=== PATIENT | female | born 1995 | race African-American/Black ===

== ENCOUNTER 2024-02-13 09:51 | Emergency (ER) | payer OTHER ==
[2024-02-13] MEDS ORDERED: NA CHLORIDE 0.9% 1,000 ML ONE (10:17)
[2024-02-13 10:33] LABS: Absolute Eosinophils 0.1 K/uL (0-0.5); Absolute Lymphocytes (CBC) 2.7 K/uL (0.7-4.9); Absolute Monocytes 0.5 K/uL (0.1-1.3); Absolute Neutrophil 3.5 K/uL (1.8-8.0); Basophils % 0.4 % (0-1.3); Eosinophils % 0.9 % (0-4.4); Hemoglobin 12.4 g/dL (12.0-15.0); Lymphocytes % 39.5 % (15.3-44.8); MCH 29.3 pg (27.0-35.0); MCHC 33.5 g/dL (32.0-36.0); MCV 87.5 fL (80-100); MPV 7.5 fL (7.6-11.3); Monocytes % 7.9 % (3.3-12.3); Neutrophils % 51.3 % (41.7-73.7); Nucleated Red Blood Cells % 0.1 % (0-0); Platelets 298 thou/uL (152-406); RBC Red Blood Cell Count 4.23 M/uL (3.86-4.86); Red Cell Distribution Width 15.4 % (12.1-15.2)
[2024-02-13 10:49] LABS: Anion Gap 4.9 mEq/L (5.0-15.0); BUN Blood Urea Nitrogen 9 mg/dL (7-18); Bicarbonate 29 mEq/L (21-32); Glomerular Filtration Rate 99 ml/min (=/>90); Glucose Level 96 mg/dL (74-106); Potassium 3.9 mEq/L (3.5-5.1); Sodium Level 137 mEq/L (136-145)
[2024-02-13 11:01] LABS: HCG, Quantitative < 1 mIU/mL (1-3)
[2024-02-13 11:15] LABS: Specific Gravity 1.022 (1.005-1.030); Sqamous Epithelial <5 /HPF (None Seen); Urine Bacteria <20 /HPF (<20); Urine Bilirubin NEGATIVE (Negative); Urine Blood Negative (Negative); Urine Clarity Clear (Clear); Urine Color Light-Yellow (Yellow); Urine Culture Reflex Order NOT NEEDED; Urine Glucose NEGATIVE (Negative); Urine Ketones NEGATIVE (Negative); Urine Microscopic Reflex YN ORDER UMIC; Urine Nitrite NEGATIVE (Negative); Urine Protein NEGATIVE (Negative); Urine RBC <5 /HPF (None Seen); Urine Urobilinogen Normal (Normal); Urine WBC <5 /HPF (<5)
--- NOTE | 2024-02-13 11:39 | RAD REPORT ---
EXAM DESCRIPTION: US - Transvaginal Study Probe - 02/13/2024 10:32 am CLINICAL HISTORY: PAIN COMPARISON: No comparisons TECHNIQUE: Sonographic grayscale and color flow images of the pelvis were obtained. FINDINGS: The uterus is normal in size, shape and echotexture. The uterus measures 8.0 cm in length. The endometrial stripe measures 10 mm, normal. Both ovaries are normal in size, shape and echotexture. The right ovary measures 3.1 x 2.4 x 2.5 cm. The left ovary measures 3.0 x 2.2 x 2.7 cm. No ovarian or parovarian lesions. No adnexal masses. Normal Doppler blood flow was demonstrated to both ovaries. No evidence of torsion. No significant pelvic ascites. IMPRESSION: Unremarkable pelvic ultrasound exam.
--- NOTE | 2024-02-13 12:10 | EDPHYS ---
Physician Documentation [facility] Name: Sadaf Duque Age: 29 yrs Sex: Female : 1995 Arrival Date: 02/13/2024 Time: 09:51 Bed 13 Private MD: ED Physician Ruben Islas HPI: 02/12 11:59 This 29 yrs old Black Female presents to ER via Ambulatory with complaints of owen Dizziness, Vaginal Bleeding, Syncope, Abdominal Cramping. 11:59 The patient presents with dizziness. Onset: The symptoms/episode began/occurred 3 owen day(s) ago. Context: occurred at an unknown location. Modifying factors: The symptoms are alleviated by nothing, the symptoms are aggravated by nothing. Associated signs and symptoms: Pertinent positives: abdominal pain. Severity of symptoms: At their worst the symptoms were moderate in the emergency department the symptoms are unchanged despite home interventions. Patient's baseline: Neuro: alert and fully oriented. The patient has experienced similar episodes in the past, several times. Historical: - Allergies: 10:11 No Known Allergies; hb - Home Meds: 10:11 None [Active]; hb - PMHx: 10:11 Hypertension; Gestational Diabetes; hb - PSHx: 10:11 None; hb - Immunization history:: Adult Immunizations up to date. - Infectious Disease History:: Denies. - Social history:: Smoking status: Patient denies any tobacco usage or history of. - Family history:: not pertinent. ROS: 11:59 Constitutional: Negative for fever, chills, and weight loss, Eyes: Negative for injury, owen pain, redness, and discharge, ENT: Negative for injury, pain, and discharge, Neck: Negative for injury, pain, and swelling, Cardiovascular: Negative for chest pain, palpitations, and edema, Respiratory: Negative for shortness of breath, cough, wheezing, and pleuritic chest pain, Abdomen/GI: Negative for abdominal pain, nausea, vomiting, diarrhea, and constipation, Back: Negative for injury and pain, MS/Extremity: Negative for injury and deformity, Skin: Negative for injury, rash, and discoloration, Neuro: Negative for headache, weakness, numbness, tingling, and seizure, Psych: Negative for depression, anxiety, suicide ideation, homicidal ideation, and hallucinations, Allergy/Immunology: Negative for hives, rash, and allergies, Endocrine: Negative for neck swelling, polydipsia, polyuria, polyphagia, and marked weight changes, Hematologic/Lymphatic: Negative for swollen nodes, abnormal bleeding, and unusual bruising, 11:59 : Positive for pelvic pain, Exam: 11:59 Constitutional: This is a well developed, well nourished patient who is awake, alert, owen and in no acute distress. Head/Face: Normocephalic, atraumatic. Eyes: Pupils equal round and reactive to light, extra-ocular motions intact. Lids and lashes normal. Conjunctiva and sclera are non-icteric and not injected. Cornea within normal limits. Periorbital areas with no swelling, redness, or edema. ENT: Nares patent. No nasal discharge, no septal abnormalities noted. Tympanic membranes are normal and external auditory canals are clear. Oropharynx with no redness, swelling, or masses, exudates, or evidence of obstruction, uvula midline. Mucous membranes moist. Neck: Trachea midline, no thyromegaly or masses palpated, and no cervical lymphadenopathy. Supple, full range of motion without nuchal rigidity, or vertebral point tenderness. No Meningismus. Chest/axilla: Normal chest wall appearance and motion. Nontender with no deformity. No lesions are appreciated. Cardiovascular: Regular rate and rhythm with a normal S1 and S2. No gallops, murmurs, or rubs. Normal PMI, no JVD. No pulse deficits. Respiratory: Lungs have equal breath sounds bilaterally, clear to auscultation and percussion. No rales, rhonchi or wheezes noted. No increased work of breathing, no retractions or nasal flaring. Abdomen/GI: Soft, non-tender, with normal bowel sounds. No distension or tympany. No guarding or rebound. No evidence of tenderness throughout. Back: No spinal tenderness. No costovertebral tenderness. Full range of motion. Skin: Warm, dry with normal turgor. Normal color with no rashes, no lesions, and no evidence of cellulitis. MS/ Extremity: Pulses equal, no cyanosis. Neurovascular intact. Full, normal range of motion. Neuro: Awake and alert, GCS 15, oriented to person, place, time, and situation. Cranial nerves II-XII grossly intact. Motor strength 5/5 in all extremities. Sensory grossly intact. Cerebellar exam normal. Normal gait. Psych: Awake, alert, with orientation to person, place and time. Behavior, mood, and affect are within normal limits. Vital Signs: 10:08 BP 125 / 86; Pulse 68; Resp 16; Temp 98.9(O); Pulse Ox 100% on R/A; Weight 86.18 kg; hb Height 5 ft. 5 in. ; Pain 7/10; 11:00 BP 120 / 86; Pulse 65; Resp 18 S; Pulse Ox 100% on R/A; aa5 10:08 Body Mass Index 31.62 (86.18 kg, 165.1 cm) hb 10:08 Pain Scale: Adult hb MDM: 10:02 Patient medically screened. [facility] 12:07 Differential diagnosis: generalized weakness, GI bleed, , syncope. Data [facility] reviewed: vital signs, nurses notes, lab test result(s), radiologic studies, ultrasound. Consideration of Admission/Observation Escalation of care including admission/observation considered. I considered the following discharge prescriptions or medication management in the emergency department Medications were administered in the Emergency Department. See MAR. Test considered but Not performed: CT: no ct abd pelvis. 02/12 10:03 Order name: Abo/rh Typing; Complete Time: 11:08 [facility] 02/12 10:03 Order name: CBC with Diff; Complete Time: 11:08 [facility] 02/12 10:03 Order name: Test, Urine; Complete Time: 11:42 [facility] 02/12 10:03 Order name: Urinalysis w/ reflexes; Complete Time: 11:42 [facility] 02/12 10:09 Order name: Quantitative Hcg; Complete Time: 11:08 [facility] 02/12 10:28 Order name: Basic Metabolic Panel; Complete Time: 11:08 [facility] 02/12 11:08 Order name: ABO/RH no charge; Complete Time: 11:08 [facility] 02/12 10:03 Order name: US Transvaginal Study (Probe); Complete Time: 11:42 [facility] 02/12 10:03 Order name: IV Saline Lock; Complete Time: 10:20 [facility] 02/12 10:03 Order name: Labs collected and sent; Complete Time: 10:20 [facility] 02/12 10:03 Order name: NPO; Complete Time: 10:20 [facility] 02/12 10:36 Order name: Labs - recollect needed: recollect ABO/RH wrong gender on labels; Complete eb Time: 10:42 Administered Medications: 10:42 Drug: NS 0.9% IV 1000 ml IV at 1 bolus Per protocol; 1000 mL bolus Route: IV; Rate: 1 aa5 bolus; Site: right antecubital; 12:00 Follow up: IV Status: Completed infusion; IV Intake: 1000ml aa5 Disposition Summary: 02/13/24 12:10 Discharge Ordered Notes: Location: Home owen Problem: new owen Symptoms: have improved owen Condition: Stable owen Diagnosis - Pelvic and perineal pain owen - Abnormal uterine and vaginal bleeding, unspecified owen - UTI/ Urinary tract infection, site not specified owen Followup: owen - With: Private Physician - When: 2 - 3 days - Reason: Recheck today's complaints, Continuance of care, Re-evaluation by your physician Discharge Instructions: - Discharge Summary Sheet owen - Abnormal Uterine Bleeding owen - Pelvic Pain, Female owen - Urinary Tract Infection, Adult owen - Pelvic Pain, Female, [id number] owen - Urinary Tract Infection, Adult, [id number] [facility] Forms: - Medication Reconciliation Form [facility] - Antibiotic Education owen - Prescription Opioid Use owen - Patient Portal Instructions [facility] - Leadership Thank You Letter [facility] Prescriptions: - Cipro 250 mg Oral tablet - take 1 tablet ORAL route every 12 hours; 14 tablet; Refills: 0, Product [facility] Selection Permitted - Ibuprofen 600 mg Oral tablet - take 1 tablet ORAL route every 6 hours As needed take with food; 20 tablet; [facility] Refills: 0, Product Selection Permitted Signatures: Dispatcher [employer] Ruben Bernal MD MD cha Calderon, Audri, RN RN aa5 Margarita Duke RN RN Stacy Caraballo Corrections: (The following items were deleted from the chart) 10:10 10:10 QUANTITATIVE HCG+C.LAB.BRZ ordered. EDMS EDMS 10:30 10:04 BASIC METABOLIC PANEL+C.LAB.BRZ ordered. EDMS EDMS
--- NOTE | 2024-02-13 12:10 | ER ---
Nurse's Notes [facility] Name: Sadaf Duque Age: 29 yrs Sex: Female : 1995 Arrival Date: 02/13/2024 Time: 09:51 Bed 13 Private MD: Diagnosis: Pelvic and perineal pain;Abnormal uterine and vaginal bleeding, unspecified;UTI/ Urinary tract infection, site not specified Presentation: 02/12 10:08 Chief complaint: Spotty vaginal bleeding 2 weeks ago, left lower abdominal pain and hb "not feeling right" today. Coronavirus screen: At this time, the client does not indicate any symptoms associated with coronavirus-19. Ebola Screen: No symptoms or risks identified at this time. Initial Sepsis Screen: Does the patient meet any 2 criteria? No. Patient's initial sepsis screen is negative. Does the patient have a suspected source of infection? No. Patient's initial sepsis screen is negative. Risk Assessment: Do you want to hurt yourself or someone else? Patient reports no desire to harm self or others. Onset of symptoms was February 13, 2024. 10:08 Method Of Arrival: Ambulatory hb 10:08 Acuity: DEREK 3 hb Triage Assessment: 10:11 General: Appears in no apparent distress. Behavior is calm, cooperative. Pain: Pain hb currently is 7 out of 10 on a pain scale. Neuro: Level of Consciousness is awake, alert, obeys commands, Oriented to person, place, time, situation. Cardiovascular: Patient's skin is warm and dry. Respiratory: Respiratory effort is even, unlabored, Respiratory pattern is regular, symmetrical. : Reports left lower abdominal pain and spotty vaginal bleeding. Historical: - Allergies: 10:11 No Known Allergies; hb - Home Meds: 10:11 None [Active]; hb - PMHx: 10:11 Hypertension; Gestational Diabetes; hb - PSHx: 10:11 None; hb - Immunization history:: Adult Immunizations up to date. - Infectious Disease History:: Denies. - Social history:: Smoking status: Patient denies any tobacco usage or history of. - Family history:: not pertinent. Screenin:15 [facility] ED Fall Risk Assessment (Adult) History of falling in the last 3 months, aa5 including since admission No falls in past 3 months (0 pts) Confusion or Disorientation No (0 pts) Intoxicated or Sedated No (0 pts) Impaired Gait No (0 pts) Mobility Assist Device Used No (0 pt) Altered Elimination No (0 pt) Score/Fall Risk Level 0 - 2 = Low Risk Oriented to surroundings, Maintained a safe environment, Educated pt \\T\\ family on fall prevention, incl call for assistance when getting out of bed. Abuse screen: Denies threats or abuse. Nutritional screening: No deficits noted. Tuberculosis screening: No symptoms or risk factors identified. Assessment: 10:15 General: Appears comfortable, Behavior is calm, cooperative. Pain: Complains of pain in aa5 left lower quadrant Pain currently is 0 out of 10 on a pain scale. Quality of pain is described as crampy, Is intermittent. Neuro: Level of Consciousness is awake, alert, obeys commands, Oriented to person, place, time, situation. Cardiovascular: Heart tones S1 S2 present Rhythm is regular. Respiratory: Airway is patent Respiratory effort is even, unlabored, Respiratory pattern is regular, symmetrical. GI: Abdomen is round non-distended, Bowel sounds present X 4 quads. Abd is soft and non tender X 4 quads. : Reports vaginal bleeding that is spotty. EENT: No signs and/or symptoms were reported regarding the EENT system. Derm: Skin is dry, Skin is normal, Skin temperature is warm. Musculoskeletal: Range of motion: intact in all extremities. 10:42 Neuro: Level of Consciousness is awake, alert, obeys commands, Oriented to person, aa5 place, time, situation. Respiratory: Airway is patent Respiratory effort is even, unlabored, Respiratory pattern is regular, symmetrical. Derm: Skin is dry, Skin is normal, Skin temperature is warm. 10:42 Reassessment: Pt back from US. aa5 12:35 Neuro: Level of Consciousness is awake, alert, obeys commands, Oriented to person, aa5 place, time, situation. Respiratory: Airway is patent Respiratory effort is even, unlabored, Respiratory pattern is regular, symmetrical. Derm: Skin is dry, Skin is normal, Skin temperature is warm. Vital Signs: 10:08 BP 125 / 86; Pulse 68; Resp 16; Temp 98.9(O); Pulse Ox 100% on R/A; Weight 86.18 kg; hb Height 5 ft. 5 in. ; Pain 7/10; 11:00 BP 120 / 86; Pulse 65; Resp 18 S; Pulse Ox 100% on R/A; aa5 10:08 Body Mass Index 31.62 (86.18 kg, 165.1 cm) hb 10:08 Pain Scale: Adult hb ED Course: 10:00 Patient arrived in ED. mg5 10:02 Ruben Islas MD is Attending Physician. [facility] 10:11 Triage completed. hb 10:11 Arm band placed on. hb 10:15 Dana Stewart, RN is Primary Nurse. aa5 10:15 Patient has correct armband on for positive identification. Bed in low position. Call aa5 light in reach. Side rails up X 1. Client placed on continuous cardiac and pulse oximetry monitoring. NIBP monitoring applied. 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 Pulse ox on. NIBP on. 10:24 Quantitative Hcg Sent. bc6 10:24 Abo/rh Typing Sent. bc6 10:24 CBC with Diff Sent. bc6 10:24 Initial lab(s) drawn, by tx, sent to lab. Inserted saline lock: 20 gauge in right 6 antecubital area, using aseptic technique. Blood collected. 10:28 Transvaginal Study (Probe) In Process Unspecified. EDND 12:35 No provider procedures requiring assistance completed. IV discontinued, intact, aa5 bleeding controlled, No redness/swelling at site. Pressure dressing applied. Administered Medications: 10:42 Drug: NS 0.9% IV 1000 ml IV at 1 bolus Per protocol; 1000 mL bolus Route: IV; Rate: 1 aa5 bolus; Site: right antecubital; 12:00 Follow up: IV Status: Completed infusion; IV Intake: 1000ml aa5 Medication: 11:22 VIS not applicable for this client. aa5 Intake: 12:00 IV: 1000ml; Total: 1000ml. aa5 Outcome: 12:10 Discharge ordered by . [facility] 12:35 Discharged to home ambulatory, aa5 12:35 Condition: good 12:35 Discharge instructions given to patient, Instructed on discharge instructions, follow up and referral plans. medication usage, Demonstrated understanding of instructions, follow-up care, medications, Prescriptions given X 2, 12:37 Patient left the ED. aa5 Signatures: Dispatcher [employer] EDND Ruben Islas MD MD cha Calderon, Audri, RN RN aa5 Margarita Duke RN RN Quita Kerr bc6 Alison Majano mg5 Corrections: (The following items were deleted from the chart) 10:30 10:24 BASIC METABOLIC PANEL+C.LAB.BRZ drawn and sent. 6 EDMS
[2024-02-13 12:46] VITALS: BP 125/86; TEMP 98.9; O2SAT 100
== END 2024-02-13 12:37 | disposition home or self-care (01) ==
LOC: EDSEX 09:51 → ER 09:51
DX: N39.0 Urinary tract infection, site not specified (principal); N93.9 Abnormal uterine and vaginal bleeding, unspecified; I10 Essential (primary) hypertension
CPT/HCPCS: 85025; 81001; 80048; 36415; 86900; 81025; 86901; 84702; 76830; 96360; 99285; J7030

== ENCOUNTER 2024-04-02 12:09 | Emergency (ER) | payer OTHER ==
[2024-04-02 13:05] LABS: Absolute Eosinophils 0.1 K/uL (0-0.5); Absolute Lymphocytes (CBC) 2.6 K/uL (0.7-4.9); Absolute Monocytes 0.5 K/uL (0.1-1.3); Absolute Neutrophil 5.1 K/uL (1.8-8.0); Basophils % 0.4 % (0-1.3); Eosinophils % 1.3 % (0-4.4); Hematocrit 39.8 % (36.0-45.0); Hemoglobin 12.9 g/dL (12.0-15.0); Lymphocytes % 31.2 % (15.3-44.8); MCH 28.3 pg (27.0-35.0); MCHC 32.4 g/dL (32.0-36.0); MCV 87.3 fL (80-100); MPV 7.6 fL (7.6-11.3); Monocytes % 5.9 % (3.3-12.3); Neutrophils % 61.2 % (41.7-73.7); Nucleated Red Blood Cells % 0.2 % (0-0); Platelets 303 thou/uL (152-406); RBC Red Blood Cell Count 4.56 M/uL (3.86-4.86)
[2024-04-02 13:21] LABS: Anion Gap 6.7 mEq/L (5.0-15.0); BUN Blood Urea Nitrogen 7 mg/dL (7-18); Bicarbonate 30 mEq/L (21-32); Glomerular Filtration Rate 110 ml/min (=/>90); Glucose Level 95 mg/dL (74-106); Potassium 3.7 mEq/L (3.5-5.1); Sodium Level 139 mEq/L (136-145)
[2024-04-02 13:22] LABS: HCG, Quantitative < 1 mIU/mL (1-3)
--- NOTE | 2024-04-02 14:15 | RAD REPORT ---
EXAM DESCRIPTION: US - Transvaginal Study Probe - 04/02/2024 1:23 pm CLINICAL HISTORY: Pelvic pain and vaginal bleeding COMPARISON: February 2024 FINDINGS: The uterus measures 8 x 4 x 5 cm. A fibroid is not seen. The endometrial stripe measures 3 millimeters The ovaries are normal in size and echotexture. The right and left adnexa unremarkable No significant free fluid is seen. IMPRESSION: Unremarkable pelvic ultrasound
[2024-04-02 14:36] LABS: Specific Gravity > 1.030 (1.005-1.030); Urine Bacteria None Seen /HPF (<20); Urine Bilirubin NEGATIVE (Negative); Urine Blood 3+ (OVER) (Negative); Urine Clarity Extremely Turbid (Clear); Urine Color Yellow (Yellow); Urine Culture Reflex Order NOT NEEDED; Urine Glucose NEGATIVE (Negative); Urine Ketones NEGATIVE (Negative); Urine Microscopic Reflex YN ORDER UMIC; Urine Mucus 3+ /HPF (None Seen); Urine Nitrite NEGATIVE (Negative); Urine Protein 1+ (Negative); Urine RBC >50 /HPF (None Seen); Urine Urobilinogen Normal (Normal); Urine WBC <5 /HPF (<5); Urine pH 7.5 (5.0-7.0)
--- NOTE | 2024-04-02 14:44 | ER ---
Nurse's Notes [facility] Name: Sadaf Duque Age: 29 yrs Sex: Female : 1995 Arrival Date: 04/02/2024 Time: 12:09 Bed 11 Private MD: Diagnosis: Vaginal bleeding Presentation: 04/02 12:19 Chief complaint: Patient states: positive test yesterday. Pt reports vaginal aa5 spotting yesterday that has gotten worse today. Coronavirus screen: At this time, the client does not indicate any symptoms associated with coronavirus-19. Ebola Screen: Patient denies travel to an Ebola-affected area in the 21 days before illness onset. Initial Sepsis Screen: Does the patient meet any 2 criteria? No. Patient's initial sepsis screen is negative. Does the patient have a suspected source of infection? No. Patient's initial sepsis screen is negative. Risk Assessment: Do you want to hurt yourself or someone else? Patient reports no desire to harm self or others. Onset of symptoms was March 2024. 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 - Infectious Disease History:: Denies. - Social history:: Smoking status: Patient denies any tobacco usage or history of. - Family history:: not pertinent. Screenin:37 [facility] ED Fall Risk Assessment (Adult) History of falling in the last 3 months, tl4 including since admission No falls in past 3 months (0 pts) Confusion or Disorientation No (0 pts) Intoxicated or Sedated No (0 pts) Impaired Gait No (0 pts) Mobility Assist Device Used No (0 pt) Altered Elimination No (0 pt) Score/Fall Risk Level 0 - 2 = Low Risk Oriented to surroundings, Maintained a safe environment, Educated pt \T\ family on fall prevention, incl call for assistance when getting out of bed, Assessed \T\ reinforced patient's understanding of fall precautions. Abuse screen: Denies threats or abuse. Denies injuries from another. Nutritional screening: No deficits noted. Tuberculosis screening: No symptoms or risk factors identified. Assessment: 12:36 Obstetrical Assessment: General assessment: awake and alert, skin warm and dry, tl4 respirations even and unlabored. General: Appears in no apparent distress. Behavior is calm, cooperative. Pain: Denies pain. Neuro: Level of Consciousness is awake, alert, obeys commands, Oriented to person, place, time, situation, Moves all extremities. Full function Gait is steady, Speech is normal. Cardiovascular: Capillary refill < 3 seconds Patient's skin is warm and dry. Respiratory: Airway is patent Respiratory effort is even, unlabored, Respiratory pattern is regular, symmetrical, Breath sounds are clear Breath sounds are coarse. GI: No signs and/or symptoms were reported involving the gastrointestinal system. : Reports vaginal bleeding that is light flow. EENT: No signs and/or symptoms were reported regarding the EENT system. Derm: No signs and/or symptoms reported regarding the dermatologic system. Musculoskeletal: No signs and/or symptoms reported regarding the musculoskeletal system. 14:24 Reassessment: Patient and/or family updated on plan of care and expected duration. Pain tl4 level reassessed. Patient is alert, oriented x 3, equal unlabored respirations, skin warm/dry/pink. Pt denies any needs at this time. Pt updated on status of evaluation. Family at bedside. Will continue to monitor. Vital Signs: 12:19 BP 128 / 80; Pulse 75; Resp 16 S; Temp 97.8(TE); Pulse Ox 99% on R/A; Weight 90.72 kg aa5 (R); Height 5 ft. 5 in. (R); 14:25 BP 121 / 77; Pulse 70; Resp 18; Pulse Ox 99% on R/A; Pain 0/10; tl4 15:01 BP 116 / 70; Pulse 68; Resp 16; Temp 98(O); Pulse Ox 99% on R/A; Pain 0/10; tl4 12:19 Body Mass Index 33.28 (90.72 kg, 165.1 cm) aa5 14:25 Pain Scale: Adult tl4 15:01 Pain Scale: Adult tl4 Vitals: 15:01 Heart Tones pt is not . tl4 ED Course: 12:13 Patient arrived in ED. ra3 12:14 Timothy Crawford MD is Attending Physician. rt 12:19 Arm band placed on. aa5 12:20 Triage completed. aa5 12:34 Giovanni Kingsley RN is Primary Nurse. tl4 12:37 Patient has correct armband on for positive identification. Placed in gown. Bed in low tl4 position. Call light in reach. Side rails up X 1. Provided Education on: ed process, call saenz. Client placed on continuous cardiac and pulse oximetry monitoring. NIBP monitoring applied. Door closed. Noise minimized. Moved to private room. Warm blanket given. Pillow given. 12:38 No provider procedures requiring assistance completed. tl4 12:59 Basic Metabolic Panel Sent. tl4 12:59 CBC with Diff Sent. tl4 12:59 Quantitative Hcg Sent. tl4 12:59 Initial lab(s) drawn, by me, sent to lab. Inserted saline lock: 22 gauge in right tl4 antecubital area, using aseptic technique. Blood collected. 13:00 Basic Metabolic Panel Sent. tl4 13:00 CBC with Diff Sent. tl4 13:00 Quantitative Hcg Sent. tl4 13:25 Transvaginal Study Probe In Process Unspecified. EDMS 14:24 Urinalysis w/ reflexes Sent. tl4 14:44 Don Bean DO is Referral Physician. rt 15:00 IV discontinued, intact, bleeding controlled, No redness/swelling at site. Pressure tl4 dressing applied. Administered Medications: No medications were administered Medication: 12:37 VIS not applicable for this client. tl4 Point of Care Testing: Urine : 15:01 hCG Reading: Negative; tl4 Outcome: 14:44 Discharge ordered by . rt 15:01 Discharged to home ambulatory, with family, tl4 15:01 Condition: stable 15:01 Discharge instructions given to patient, Instructed on discharge instructions, follow up and referral plans. Demonstrated understanding of instructions, follow-up care, 15:02 Patient left the ED. tl4 Signatures: Dispatcher [employer] EDNV Dana Stewart RN RN aa5 Timothy Crawford MD MD rt Giovanni Kingsley RN RN tl4 Ladi Bender 3
--- NOTE | 2024-04-02 14:44 | EDPHYS ---
Physician Documentation [facility] Name: Sadaf Duque Age: 29 yrs Sex: Female : 1995 Arrival Date: 04/02/2024 Time: 12:09 Bed 11 Private MD: ED Physician Timothy Crawford HPI: 04/02 14:02 This 29 yrs old Black Female presents to ER via Ambulatory with complaints of Vaginal rt Bleeding, + Preg <12wks. 14:02 Patient is reportedly G5, P2 at about 4 weeks gestation per her report who presents to rt the ED with reported vaginal bleeding, right-sided pelvic pain. The patient reports having a positive test yesterday. She reports 2 prior history of ectopic pregnancies. Reports spotting currently. Nausea, denies other acute complaints, symptoms are moderate in severity, no other aggravating or alleviating factors.. 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 - Infectious Disease History:: Denies. - Social history:: Smoking status: Patient denies any tobacco usage or history of. - Family history:: not pertinent. ROS: 14:02 Constitutional: Negative for fever, chills, and weight loss, Cardiovascular: Negative rt for chest pain, palpitations, and edema, Respiratory: Negative for shortness of breath, cough, wheezing, and pleuritic chest pain, Skin: Negative for injury, rash, and discoloration, Neuro: Negative for headache, weakness, numbness, tingling, and seizure, 14:02 Abdomen/GI: Positive for nausea, 14:02 : Positive for vaginal bleeding, Exam: 14:02 Constitutional: This is a well developed, well nourished patient who is awake, alert, rt and in no acute distress. Head/Face: Normocephalic, atraumatic. Chest/axilla: Normal chest wall appearance and motion. Nontender with no deformity. No lesions are appreciated. Cardiovascular: Regular rate and rhythm with a normal S1 and S2. No gallops, murmurs, or rubs. Normal PMI, no JVD. No pulse deficits. Respiratory: Lungs have equal breath sounds bilaterally, clear to auscultation and percussion. No rales, rhonchi or wheezes noted. No increased work of breathing, no retractions or nasal flaring. Abdomen/GI: Soft, non-tender, with normal bowel sounds. No distension or tympany. No guarding or rebound. No evidence of tenderness throughout. Skin: Warm, dry with normal turgor. Normal color with no rashes, no lesions, and no evidence of cellulitis. MS/ Extremity: Pulses equal, no cyanosis. Neurovascular intact. Full, normal range of motion. Neuro: Awake and alert, GCS 15, oriented to person, place, time, and situation. Cranial nerves II-XII grossly intact. Motor strength 5/5 in all extremities. Sensory grossly intact. Cerebellar exam normal. Normal gait. Vital Signs: 12:19 BP 128 / 80; Pulse 75; Resp 16 S; Temp 97.8(TE); Pulse Ox 99% on R/A; Weight 90.72 kg aa5 (R); Height 5 ft. 5 in. (R); 14:25 BP 121 / 77; Pulse 70; Resp 18; Pulse Ox 99% on R/A; Pain 0/10; tl4 15:01 BP 116 / 70; Pulse 68; Resp 16; Temp 98(O); Pulse Ox 99% on R/A; Pain 0/10; tl4 12:19 Body Mass Index 33.28 (90.72 kg, 165.1 cm) aa5 14:25 Pain Scale: Adult tl4 15:01 Pain Scale: Adult tl4 MDM: 12:23 Patient medically screened. rt 14:58 Differential diagnosis: Menstruation, first trimester vaginal bleeding, threatened AB, rt ectopic . Data reviewed: vital signs, nurses notes, lab test result(s), radiologic studies. I considered the following discharge prescriptions or medication management in the emergency department test is negative, RhoGAM is not indicated. Counseling: I had a detailed discussion with the patient and/or guardian regarding the historical points, exam findings, and any diagnostic results supporting the discharge/admit diagnosis, lab results, radiology results, the need for outpatient follow up, to return to the emergency department if symptoms worsen or persist or if there are any questions or concerns that arise at home. ED course: Patient with essentially negative test, vaginal bleeding likely due to menstruation. No further workup is indicated at this time, stable for outpatient care. 04/02 12:32 Order name: Basic Metabolic Panel; Complete Time: 13:59 rt 04/02 12:32 Order name: CBC with Diff; Complete Time: 13:20 rt 04/02 12:32 Order name: Quantitative Hcg; Complete Time: 13:59 rt 04/02 12:32 Order name: Urinalysis w/ reflexes; Complete Time: 14:40 rt 04/02 13:25 Order name: Transvaginal Study Probe; Complete Time: 14:40 EDMS 04/02 12:32 Order name: IV Saline Lock; Complete Time: 12:59 rt 04/02 12:32 Order name: Labs collected and sent; Complete Time: 12:59 rt 04/02 12:32 Order name: NPO; Complete Time: 12:59 rt Administered Medications: No medications were administered Point of Care Testing: Urine : 15:01 hCG Reading: Negative; tl4 Disposition Summary: 04/02/24 14:44 Discharge Ordered Notes: Location: Home rt Problem: new rt Symptoms: are unchanged rt Condition: Stable rt Diagnosis - Vaginal bleeding rt Followup: rt - With: Don Bean, DO - When: 5 - 6 days - Reason: Discharge Instructions: - Discharge Summary Sheet rt - Menstruation rt Forms: - Medication Reconciliation Form rt - Antibiotic Education rt - Prescription Opioid Use rt - Patient Portal Instructions rt - Leadership Thank You Letter rt Signatures: Dispatcher [facility] Dana Cardenas RN RN aa5 Timothy Crawford MD MD rt Corrections: (The following items were deleted from the chart) 12:33 12:33 BASIC METABOLIC PANEL+C.LAB.BRZ ordered. EDMS EDMS 12:33 12:33 CBC+H.LAB.BRZ ordered. EDMS EDMS 12:33 12:33 QUANTITATIVE HCG+C.LAB.BRZ ordered. EDMS EDMS 12:33 12:33 Urinalysis+U.LAB.BRZ ordered. EDMS EDMS 12:33 12:33 Transvaginal Ob+US.RAD.BRZ ordered. EDMS EDMS
[2024-04-02 15:23] VITALS: BP 116/70; TEMP 98; O2SAT 99
== END 2024-04-02 15:02 | disposition home or self-care (01) ==
LOC: ER 12:09
DX: N93.9 Abnormal uterine and vaginal bleeding, unspecified (principal); R11.0 Nausea
CPT/HCPCS: 36415; 76830; 80048; 81001; 84702; 85025; 99284

== ENCOUNTER 2024-05-25 10:22 | Emergency (ER) | payer OTHER ==
--- NOTE | 2024-05-25 11:09 | RAD REPORT ---
EXAM DESCRIPTION: US - Abdomen Exam Limited - 05/25/2024 10:56 am CLINICAL HISTORY: gb eval Abdominal pain COMPARISON: No comparisons FINDINGS: The gallbladder demonstrates no gallstones. No pericholecystic fluid or gallbladder wall t hickening. The common bile duct is normal measuring 2 mm. The liver demonstrates no findings of intrahepatic biliary dilatation. IMPRESSION: Unremarkable examination.
[2024-05-25 11:15] LABS: Absolute Eosinophils 0.1 K/uL (0-0.5); Absolute Lymphocytes (CBC) 2.5 K/uL (0.7-4.9); Absolute Monocytes 0.5 K/uL (0.1-1.3); Absolute Neutrophil 4.6 K/uL (1.8-8.0); Basophils % 0.6 % (0-1.3); Hematocrit 38.9 % (36.0-45.0); Hemoglobin 12.5 g/dL (12.0-15.0); Lymphocytes % 32.1 % (15.3-44.8); MCH 28.4 pg (27.0-35.0); MCHC 32.1 g/dL (32.0-36.0); MCV 88.2 fL (80-100); MPV 7.8 fL (7.6-11.3); Monocytes % 6.5 % (3.3-12.3); Neutrophils % 59.8 % (41.7-73.7); Platelets 276 thou/uL (152-406); RBC Red Blood Cell Count 4.41 M/uL (3.86-4.86)
[2024-05-25 11:21] LABS: Specific Gravity 1.024 (1.005-1.030)
[2024-05-25 11:22] LABS: Specific Gravity 1.024 (1.005-1.030); Urine Bacteria None Seen /HPF (<20); Urine Bilirubin NEGATIVE (Negative); Urine Blood Negative (Negative); Urine Clarity Turbid (Clear); Urine Color Light-Yellow (Yellow); Urine Culture Reflex Order NOT NEEDED; Urine Glucose NEGATIVE (Negative); Urine Ketones NEGATIVE (Negative); Urine Microscopic Reflex YN ORDER UMIC; Urine Mucus Slight /HPF (None Seen); Urine Nitrite NEGATIVE (Negative); Urine Protein TRACE (Negative); Urine RBC <5 /HPF (None Seen); Urine Urobilinogen Normal (Normal); Urine WBC <5 /HPF (<5); Urine pH 7.5 (5.0-7.0)
[2024-05-25 11:35] LABS: Albumin 3.5 g/dL (3.4-5.0); Albumin/Globulin Ratio 0.9 (1.1-1.8); Anion Gap 7.9 mEq/L (5.0-15.0); Bilirubin Total 0.2 mg/dL (0.2-1.0); Globulin 3.8 g/dL (2.3-3.5); Potassium 3.9 mEq/L (3.5-5.1); Protein, Total 7.3 g/dL (6.4-8.2)
[2024-05-25] MEDS ORDERED: ONDANSETRON 4 MG/2 ML VIAL ONE (12:00)
[2024-05-25] MEDS ORDERED: NA CHLORIDE 0.9% 1,000 ML ONE (12:01)
--- NOTE | 2024-05-25 13:51 | ER ---
Nurse's Notes [facility] Name: Sadaf Duque Age: 29 yrs Sex: Female : 1995 Arrival Date: 05/25/2024 Time: 10:22 Bed 12 Private MD: Diagnosis: Noninfective gastroenteritis and colitis, unspecified Presentation: 05/25 10:27 Chief complaint: Patient states: VOMITING, CHEST PAIN AFTER VOMITING YESTERDAY. me1 POSSIBLY NEEDS BLOOD WORK.. 8 DAYS LATE ON CYCLE. 10:27 Method Of Arrival: Ambulatory db 10:28 Coronavirus screen: Client denies travel out of the [place] in the last 14 days. At this db time, the client does not indicate any symptoms associated with coronavirus-19. Ebola Screen: Patient denies exposure to infectious person. Patient denies travel to an Ebola-affected area in the 21 days before illness onset. No symptoms or risks identified at this time. Initial Sepsis Screen: Does the patient meet any 2 criteria? No. Patient's initial sepsis screen is negative. Does the patient have a suspected source of infection? No. Patient's initial sepsis screen is negative. Risk Assessment: Do you want to hurt yourself or someone else? Patient reports no desire to harm self or others. Onset of symptoms was May 24, 2024. 10:28 Acuity: DEREK 3 db Triage Assessment: 10:30 General: Appears in no apparent distress. comfortable, Behavior is calm, cooperative. db Pain: Denies pain. 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 - Infectious Disease History:: Denies. - Social history:: Smoking status: Patient denies any tobacco usage or history of. Screenin:32 [facility] ED Fall Risk Assessment (Adult) History of falling in the last 3 months, me1 including since admission No falls in past 3 months (0 pts) Confusion or Disorientation No (0 pts) Intoxicated or Sedated No (0 pts) Impaired Gait No (0 pts) Mobility Assist Device Used No (0 pt) Altered Elimination No (0 pt) Score/Fall Risk Level 0 - 2 = Low Risk Maintained a safe environment, Provided non-skid footwear, Hourly rounding (assess needs \T\ fall precautionary measures) done. Abuse screen: Denies threats or abuse. Nutritional screening: No deficits noted. Tuberculosis screening: No symptoms or risk factors identified. Assessment: 12:10 General: Appears comfortable, well groomed, well developed, well nourished, Behavior is me1 calm, cooperative, appropriate for age, Reports VOMITING, CHEST PAIN AFTER VOMITING YESTERDAY. POSSIBLY NEEDS BLOOD WORK.. 8 DAYS LATE ON CYCLE. Pain: Complains of pain in chest Pain does not radiate. Pain currently is 0 out of 10 on a pain scale. at worst was 3 out of 10 on a pain scale. Quality of pain is described as tender, Pain began suddenly, Is intermittent. Neuro: Level of Consciousness is awake, alert, obeys commands, Oriented to person, place, time, situation, Appropriate for age. Cardiovascular: Patient's skin is warm and dry. Respiratory: Airway is patent Respiratory effort is even, unlabored, Respiratory pattern is regular, symmetrical. GI: No signs and/or symptoms were reported involving the gastrointestinal system. : No signs and/or symptoms were reported regarding the genitourinary system. Reports Period 8 days late. EENT: No signs and/or symptoms were reported regarding the EENT system. Derm: Skin is intact, is healthy with good turgor, Skin is pink, warm \T\ dry. Vital Signs: 10:28 BP 126 / 77; Pulse 80; Resp 16; Temp 97.3; Pulse Ox 97% ; Weight 86.18 kg; Height 5 ft. db 5 in. ; 12:07 BP 138 / 67; Pulse 77; Resp 16; Temp 98.1; Pulse Ox 100% ; me1 13:15 BP 116 / 81; Pulse 79; Resp 15; Pulse Ox 100% on R/A; me1 14:02 BP 125 / 79; Pulse 71; Resp 16; Temp 98.3; Pulse Ox 100% on R/A; me1 10:28 Body Mass Index 31.62 (86.18 kg, 165.1 cm) db ED Course: 10:25 Patient arrived in ED. mr 10:26 Trae Cárdenas MD is Attending Physician. ec2 10:30 Triage completed. db 10:31 Arm band placed on Patient placed in an exam room. db 10:58 US Abdomen Limited In Process Unspecified. EDMS 11:10 CBC with Diff Sent. bc6 11:10 CMP Sent. bc6 11:10 Lipase Sent. bc6 11:10 Test, Urine Sent. bc6 11:10 Urinalysis w/ reflexes Sent. bc6 11:10 Initial lab(s) drawn, by me, sent to lab. Inserted saline lock: 20 gauge in right 6 antecubital area, using aseptic technique. Blood collected. Flushed with 10 mL NS. 11:35 Patient placed in an exam room, on a stretcher. ll1 11:57 Rhonda Betancur, RN is Primary Nurse. me1 12:32 Patient has correct armband on for positive identification. Bed in low position. Call me1 light in reach. Side rails up X2. Provided Education on: POC. Verbalized understanding.. Client placed on continuous cardiac and pulse oximetry monitoring. NIBP monitoring applied. Pulse ox on. NIBP on. 12:32 Warm blanket given. me1 12:32 No provider procedures requiring assistance completed. me1 14:03 IV discontinued, intact, bleeding controlled, No redness/swelling at site. Pressure me1 dressing applied. Administered Medications: 12:07 Drug: NS 0.9% IV 1000 ml IV at 1 bolus Per protocol; 1000 mL bolus Route: IV; Rate: 1 me1 bolus; Site: right antecubital; 13:26 Follow up: Response: No adverse reaction; IV Status: Completed infusion; IV Intake: me1 1000ml 12:07 Drug: Ondansetron IVP 4 mg IVP once; over 2 minutes Route: IVP; Site: right antecubital;me1 12:33 Follow up: Response: No adverse reaction; Nausea is decreased me1 Medication: 14:03 VIS not applicable for this client. me1 Intake: 13:26 IV: 1000ml; Total: 1000ml. me1 Outcome: 13:50 Discharge ordered by . ec2 14:03 Discharged to home ambulatory, me1 14:03 Condition: stable 14:03 Discharge instructions given to patient, Instructed on discharge instructions, follow up and referral plans. medication usage, Demonstrated understanding of instructions, follow-up care, medications, Prescriptions given X 1, 14:03 Patient left the ED. me1 Signatures: Dispatcher [employer] EDJennifer Najera Reg Reg mr Rajeev Herrera, RN RN ll1 Griselda Schneider, RN RN db [place] Up 6 Rhonda Betancur RN RN me1 Trae Cárdenas MD MD ec2 Corrections: (The following items were deleted from the chart) 10:30 10:27 Chief complaint: Patient states: VOMITING, CHEST PAIN AFTER VOMITING YESTERDAY. db POSSIBLY NEEDS BLOOD WORK db 12:29 10:27 Chief complaint: Patient states: VOMITING, CHEST PAIN AFTER VOMITING YESTERDAY. me1 POSSIBLY NEEDS BLOOD WORK.. 8 DAYS LATE ON CYCLE db
--- NOTE | 2024-05-25 13:51 | EDPHYS ---
Physician Documentation [facility] Name: Sadaf Duque Age: 29 yrs Sex: Female : 1995 Arrival Date: 05/25/2024 Time: 10:22 Bed 12 Private MD: ED Physician Trae Cárdenas HPI: 05/25 10:38 This 29 yrs old Black Female presents to ER via Ambulatory with complaints of Vomiting. ec2 10:38 Patient arrives today for evaluation of nausea and vomiting. She reports that she has ec2 been feeling unwell. Patient reports that she has no specific cough and cold symptoms, does have some upper abdominal pain occasionally. Denies any dysuria. Patient reports generally feeling unwell.. 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 - Infectious Disease History:: Denies. - Social history:: Smoking status: Patient denies any tobacco usage or history of. ROS: 10:38 Constitutional: as per hpi ec2 Exam: 10:38 Constitutional: GEN: NAD Head: atraumatic Eyes: EOMI Ears: External ears are ec2 normal. CV: regular rate LUNGS: no respiratory distress ABD: non-distended, soft, tender in the right upper quadrant, no guarding, not rigid. SKIN: no evidence of rashes MSK: no evidence of trauma Vital Signs: 10:28 BP 126 / 77; Pulse 80; Resp 16; Temp 97.3; Pulse Ox 97% ; Weight 86.18 kg; Height 5 ft. db 5 in. ; 12:07 BP 138 / 67; Pulse 77; Resp 16; Temp 98.1; Pulse Ox 100% ; me1 13:15 BP 116 / 81; Pulse 79; Resp 15; Pulse Ox 100% on R/A; me1 14:02 BP 125 / 79; Pulse 71; Resp 16; Temp 98.3; Pulse Ox 100% on R/A; me1 10:28 Body Mass Index 31.62 (86.18 kg, 165.1 cm) db MDM: 10:38 Data reviewed: vital signs. ED course: Patient arrives today for evaluation of nausea ec2 and vomiting along with right upper abdominal pain. Examination remarkable for abdominal findings as above. Will obtain lab work, urine studies, give the patient crystalloid as well as Zofran. Differential includes gallbladder pathology, gastroenteritis, urinary tract infection, . 10:39 Patient medically screened. ec2 11:39 ED course: CBC reassuring. Metabolic profile with appropriate electrolytes and renal ec2 function. Urine is pertinent for leuk esterase, within normal ranges lipase, urine negative. Chest x-ray shows no acute intrathoracic process. . 13:49 ED course: On reassessment patient is well-appearing no acute distress. Will discharge ec2 home, have the patient follow-up with primary care. Return precautions given.. 05/25 10:37 Order name: CBC with Diff; Complete Time: 11:38 ec2 05/25 10:37 Order name: CMP; Complete Time: 11:38 ec2 05/25 10:37 Order name: Lipase; Complete Time: 11:38 ec2 05/25 10:37 Order name: Test, Urine; Complete Time: 11:38 ec2 05/25 10:37 Order name: Urinalysis w/ reflexes; Complete Time: 11:38 ec2 05/25 10:37 Order name: US Abdomen Limited; Complete Time: 11:38 ec2 05/25 10:38 Order name: IV Saline Lock; Complete Time: 11:10 ec2 05/25 10:38 Order name: Labs collected and sent; Complete Time: 11:10 ec2 Administered Medications: 12:07 Drug: NS 0.9% IV 1000 ml IV at 1 bolus Per protocol; 1000 mL bolus Route: IV; Rate: 1 me1 bolus; Site: right antecubital; 13:26 Follow up: Response: No adverse reaction; IV Status: Completed infusion; IV Intake: me1 1000ml 12:07 Drug: Ondansetron IVP 4 mg IVP once; over 2 minutes Route: IVP; Site: right antecubital;me1 12:33 Follow up: Response: No adverse reaction; Nausea is decreased me1 Disposition Summary: 05/25/24 13:50 Discharge Ordered Notes: Location: Home ec2 Condition: Stable ec2 Diagnosis - Noninfective gastroenteritis and colitis, unspecified ec2 Followup: ec2 - With: Private Physician - When: - Reason: Re-evaluation by your physician Discharge Instructions: - Discharge Summary Sheet ec2 - Viral Gastroenteritis, Adult, [id number] ec2 Forms: - Medication Reconciliation Form ec2 - Antibiotic Education ec2 - Prescription Opioid Use ec2 - Patient Portal Instructions ec2 - Leadership Thank You Letter ec2 Prescriptions: - Zofran 4 mg Oral Tablet - take 1 tablet ORAL route every 12 hours As needed; 20 tablet; Refills: 0, ec2 Product Selection Permitted Signatures: Dispatcher [employer] Griselda Castellano RN RN db Rhonda Betancur RN RN me1 Trae Cárdenas MD MD ec2 Corrections: (The following items were deleted from the chart) 10:38 10:38 CBC+H.LAB.BRZ ordered. EDMS EDMS 10:38 10:38 COMPREHENSIVE METABOLIC PANEL+C.LAB.BRZ ordered. EDMS EDMS 10:38 10:38 LIPASE+C.LAB.BRZ ordered. EDMS EDMS 10:38 10:38 Test, Urine+UC.LAB.BRZ ordered. EDMS EDMS 10:38 10:38 Urinalysis+U.LAB.BRZ ordered. EDMS EDMS
[2024-05-25 14:25] VITALS: O2SAT 100
[2024-05-25 14:28] VITALS: BP 125/79; TEMP 98.3
== END 2024-05-25 14:03 | disposition home or self-care (01) ==
LOC: ER 10:22
DX: K52.9 Noninfective gastroenteritis and colitis, unspecified (principal); R10.10 Upper abdominal pain, unspecified
CPT/HCPCS: 85025; 81001; 36415; 81025; 83690; 80053; 76705; J2405; J7030

== ENCOUNTER 2024-08-31 19:29 | Emergency (ER) | payer OTHER ==
--- NOTE | 2024-08-31 19:47 | ER ---
Nurse's Notes [facility] Name: Sadaf Duque Age: 29 yrs Sex: Female : 1995 Arrival Date: 08/31/2024 Time: 19:29 Bed IW2 Private MD: Diagnosis: Periapical abscess without sinus Presentation: 08/31 19:45 Chief complaint: Patient states: Pain to 2nd to last molar on right lower side onset cm10 yesterday. Pt states that she cracked the tooth 3 months ago. Coronavirus screen: Client denies travel out of the [place] in the last 14 days. Ebola Screen: Patient denies travel to an Ebola-affected area in the 21 days before illness onset. No symptoms or risks identified at this time. Initial Sepsis Screen: Does the patient meet any 2 criteria? No. Patient's initial sepsis screen is negative. Does the patient have a suspected source of infection? No. Patient's initial sepsis screen is negative. Risk Assessment: Do you want to hurt yourself or someone else? Patient reports no desire to harm self or others. Onset of symptoms was August 30, 2024. 19:45 Method Of Arrival: Ambulatory cm10 19:45 Acuity: DEREK 4 cm10 Triage Assessment: 19:46 General: Appears in no apparent distress. uncomfortable, Behavior is calm, cooperative. cm10 Pain: Complains of pain in lower right second molar Pain radiates to face Pain currently is 10 out of 10 on a pain scale. EENT: Reports pain in lower right second molar Pain is 10 out of 10 on a pain scale. since Yesterday. Neuro: No deficits noted. Level of Consciousness is awake, alert, obeys commands, Oriented to person, place, time, situation, Appropriate for age. Respiratory: No deficits noted. Airway is patent Respiratory effort is even, unlabored, Respiratory pattern is regular, symmetrical. Derm: No deficits noted. Skin is healthy with good turgor. Musculoskeletal: No deficits noted. Range of motion: intact in all extremities. REGISTRY NP: 19:48 unknown cm10 Historical: - Allergies: 19:47 No Known Allergies; cm10 - Home Meds: 19:47 None [Active]; cm10 - PMHx: 19:47 gestational diabetes; Hypertension; cm10 - Immunization history:: Adult Immunizations up to date. - Infectious Disease History:: Denies. - Social history:: Smoking status: Patient denies any tobacco usage or history of. Screenin:48 [facility] ED Fall Risk Assessment (Adult) History of falling in the last 3 months, cm10 including since admission No falls in past 3 months (0 pts) Confusion or Disorientation No (0 pts) Intoxicated or Sedated No (0 pts) Impaired Gait No (0 pts) Mobility Assist Device Used No (0 pt) Altered Elimination No (0 pt) Score/Fall Risk Level 0 - 2 = Low Risk Oriented to surroundings, Maintained a safe environment, Hourly rounding (assess needs \T\ fall precautionary measures) done. Abuse screen: Denies threats or abuse. Denies injuries from another. Nutritional screening: No deficits noted. Tuberculosis screening: No symptoms or risk factors identified. Vital Signs: 19:45 BP 130 / 72; Pulse 89; Resp 18; Temp 99; Pulse Ox 100% on R/A; Weight 86.18 kg; Height cm10 5 ft. 5 in. ; Pain 10/10; 19:45 Body Mass Index 31.62 (86.18 kg, 165.1 cm) cm10 19:45 Pain Scale: Adult cm10 ED Course: 19:31 Patient arrived in ED. [id number] 19:34 [facility]-C [facility] kb 19:34 Ruben Islas MD is Attending Physician. kb 19:46 Triage completed. cm10 19:47 Arm band placed on left wrist. Patient placed in waiting room. cm10 19:48 Patient has correct armband on for positive identification. Provided Education on: cm10 Follow-up instructions. 19:48 No provider procedures requiring assistance completed. Patient did not have IV access cm10 during this emergency room visit. Administered Medications: 19:55 Drug: Hydrocodone-Acetaminophen PO (7.5 mg-325 mg) 1 tabs PO once Route: PO; cm10 19:55 Follow up: Response: Medication administered at discharge. cm10 19:55 Drug: Amoxicillin-Clavulanate PO 875 mg PO once Route: PO; cm10 19:55 Follow up: Response: Medication administered at discharge. cm10 Medication: 19:48 VIS not applicable for this client. cm10 Outcome: 19:47 Discharge ordered by . kb 19:48 Discharged to home ambulatory, with family, cm10 19:48 Condition: good 19:48 Discharge instructions given to patient, Instructed on discharge instructions, follow up and referral plans. medication usage, Demonstrated understanding of instructions, follow-up care, medications, Prescriptions given X 2, 19:56 Patient left the ED. cm10 Signatures: Jacinda Burns, CABLE TELEVISION PROGRAM DIRECTOR-C CABLE TELEVISION PROGRAM DIRECTOR-CkMaggie Guerrero [email or web address] Cortney Monsivais, RN RN cm10
--- NOTE | 2024-08-31 19:47 | EDPHYS ---
Physician Documentation [facility] Name: Sadaf Duque Age: 29 yrs Sex: Female : 1995 Arrival Date: 08/31/2024 Time: 19:29 Bed IW2 Private MD: ED Physician Ruben Islas HPI: 08/31 19:53 This 29 yrs old Black Female presents to ER via Ambulatory with complaints of Toothache.kb 19:55 Pt is a 29 year old female who presents for toothache that started yesterday. States kb she broke the tooth 3 months ago and has had intermittent pain, but it got worse yesterday and now it is making her jaw hurt. . 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 - Infectious Disease History:: Denies. - Social history:: Smoking status: Patient denies any tobacco usage or history of. ROS: 19:52 Constitutional: As per HPI kb Exam: 19:52 Constitutional: This is a well developed, well nourished patient who is awake, alert, kb and in no acute distress. Head/Face: Normocephalic, atraumatic. Cardiovascular: Regular rate Respiratory: Respirations even and unlabored. No increased work of breathing. Talking in full sentences Skin: Warm, dry with normal turgor. Normal color. MS/ Extremity: Pulses equal, no cyanosis. Neurovascular intact. Full, normal range of motion. Neuro: Awake and alert, GCS 15, oriented to person, place, time, and situation. 19:52 ENT: Dental exam: gum swelling, that is mild, specifically in the lower right first molar (#30) and lower right second molar (#31), pain, that is moderate, specifically in the lower right second molar (#31) and lower right third molar (#32), slight swelling right jaw, Vital Signs: 19:45 BP 130 / 72; Pulse 89; Resp 18; Temp 99; Pulse Ox 100% on R/A; Weight 86.18 kg; Height cm10 5 ft. 5 in. ; Pain 10/10; 19:45 Body Mass Index 31.62 (86.18 kg, 165.1 cm) cm10 19:45 Pain Scale: Adult cm10 MDM: 19:34 Medical Screening Exam initiated kb 19:54 Differential diagnosis: dental caries, dental abscess, pericoronitis, aphthous ulcers. kb Data reviewed: vital signs, nurses notes. Counseling: I had a detailed discussion with the patient and/or guardian regarding the historical points, exam findings, and any diagnostic results supporting the discharge/admit diagnosis, the need for outpatient follow up, a dentist, to return to the emergency department if symptoms worsen or persist or if there are any questions or concerns that arise at home. Administered Medications: 19:55 Drug: Hydrocodone-Acetaminophen PO (7.5 mg-325 mg) 1 tabs PO once Route: PO; cm10 19:55 Follow up: Response: Medication administered at discharge. cm10 19:55 Drug: Amoxicillin-Clavulanate PO 875 mg PO once Route: PO; cm10 19:55 Follow up: Response: Medication administered at discharge. cm10 Disposition Summary: 08/31/24 19:47 Discharge Ordered Notes: Location: Home kb Condition: Stable kb Diagnosis - Periapical abscess without sinus kb Followup: kb - With: Emergency Department - When: As needed - Reason: Worsening of condition Followup: kb - With: Private Physician - When: 2 - 3 days - Reason: Recheck today's complaints, Continuance of care, Re-evaluation by your physician Discharge Instructions: - Discharge Summary Sheet kb - Dental Pain, [id number] kb - Dental Abscess, [id number] kb Forms: - Medication Reconciliation Form kb - Antibiotic Education kb - Prescription Opioid Use kb - Patient Portal Instructions kb - Leadership Thank You Letter kb Prescriptions: - Augmentin 875-125 mg Oral Tablet - take 1 tablet ORAL route every 12 hours for 10 days; 20 tablet; Refills: 0, kb Product Selection Permitted - Diclofenac Sodium 75 mg Oral tablet, delayed release (enteric coated) - take 1 tablet ORAL route 2 times per day As needed; 30 tablet; Refills: 0, kb Product Selection Permitted Signatures: Jacinda Burns, Cortney Templeton, RN RN cm10
[2024-08-31] MEDS ORDERED: AMOX/K CLAV 875 MG TAB ONE (19:50)
[2024-08-31] MEDS ORDERED: HYDROCODONE/APAP 7.5/325 MG TAB ONE (19:50)
[2024-09-01 01:03] VITALS: BP 130/72; TEMP 99; O2SAT 100
== END 2024-08-31 19:56 | disposition home or self-care (01) ==
LOC: ER 19:29
DX: K04.7 Periapical abscess without sinus (principal)
CPT/HCPCS: 99283

== ENCOUNTER 2024-09-28 10:08 | Emergency (ER) | payer OTHER ==
--- NOTE | 2024-09-28 11:26 | RAD REPORT ---
EXAM: XR RIGHT HAND HISTORY: Pain. index finger injury COMPARISON: None TECHNIQUE: Multiple projections of the right hand submitted. FINDINGS: Mild soft tissue swelling affects the second finger.. No fracture, dislocation or radiopaqu e foreign body.
--- NOTE | 2024-09-28 11:33 | EDPHYS ---
Physician Documentation [facility] Name: Sadaf Duque Age: 29 yrs Sex: Female : 1995 Arrival Date: 09/28/2024 Time: 10:08 Bed 12 Private MD: ED Physician Trae Cárdenas HPI: 09/28 11:31 This 29 yrs old Black Female presents to ER via Ambulatory with complaints of Finger ec2 Injury. 11:31 Patient arrives today after injuring right index finger. No other concerns. Reports she ec2 is having some swelling which prompted evaluation.. 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 - Infectious Disease History:: Denies. - Social history:: Smoking status: Patient denies any tobacco usage or history of. ROS: 11:31 Constitutional: as per hpi ec2 Exam: 11:31 Constitutional: GEN: NAD Head: atraumatic Eyes: EOMI Ears: External ears are ec2 normal. CV: regular rate LUNGS: no respiratory distress ABD: non-distended SKIN: no evidence of rashes MSK: no evidence of trauma. Index finger of right hand with swelling noted. Vital Signs: 10:30 BP 133 / 80; Pulse 89; Resp 17; Temp 97; Pulse Ox 100% ; Weight 88.9 kg; Height 5 ft. 5 jl7 in. ; Pain 8/10; 10:30 Body Mass Index 32.62 (88.90 kg, 165.1 cm) jl7 10:30 Pain Scale: Adult jl7 MDM: 10:29 Medical Screening Exam initiated ec2 11:31 Data reviewed: vital signs, nurses notes. ED course: Patient arrives today for right ec2 finger index injury. Examination he was MSK findings as above. X-ray negative. Will discharge home. Return precautions given. Suspect contusion.. 09/28 10:41 Order name: Hand Right 3 View XRAY; Complete Time: 11:28 ec2 Administered Medications: No medications were administered Disposition Summary: 09/28/24 11:32 Discharge Ordered Notes: Location: Home ec2 Condition: Stable ec2 Diagnosis - Finger Contusion ec2 Followup: ec2 - With: Private Physician - When: - Reason: Re-evaluation by your physician Discharge Instructions: - Discharge Summary Sheet ec2 - Finger Sprain, Adult, [id number] ec2 Forms: - Medication Reconciliation Form ec2 - Antibiotic Education ec2 - Prescription Opioid Use ec2 - Patient Portal Instructions ec2 - Leadership Thank You Letter ec2 Signatures: Dispatcher [employer] Margarita Naylor, RN RN Trae Cárdenas MD MD ec2 Corrections: (The following items were deleted from the chart) 10:42 10:42 Hand Right 3 View+RAD.RAD.BRZ ordered. PAIGE GIBSON
--- NOTE | 2024-09-28 11:33 | ER ---
Nurse's Notes [facility] Name: Sadaf Duque Age: 29 yrs Sex: Female : 1995 Arrival Date: 09/28/2024 Time: 10:08 Bed 12 Private MD: Diagnosis: Finger Contusion Presentation: 09/28 10:30 Chief complaint: Patient states: Jammed right pointer finger last night, swelling jl7 noted. Coronavirus screen: At this time, the client does not indicate any symptoms associated with coronavirus-19. Ebola Screen: No symptoms or risks identified at this time. Initial Sepsis Screen: Does the patient meet any 2 criteria? No. Patient's initial sepsis screen is negative. Does the patient have a suspected source of infection? No. Patient's initial sepsis screen is negative. Risk Assessment: Do you want to hurt yourself or someone else? Patient reports no desire to harm self or others. Onset of symptoms was September 27, 2024. 10:30 Method Of Arrival: Ambulatory jl7 10:30 Acuity: DEREK 4 jl7 Triage Assessment: 10:30 General: Appears in no apparent distress. Injury Description: Bruise sustained to Right jl7 index finger. 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 - Infectious Disease History:: Denies. - Social history:: Smoking status: Patient denies any tobacco usage or history of. Screenin:30 [facility] ED Fall Risk Assessment (Adult) History of falling in the last 3 months, hb including since admission No falls in past 3 months (0 pts) Confusion or Disorientation No (0 pts) Intoxicated or Sedated No (0 pts) Impaired Gait No (0 pts) Mobility Assist Device Used No (0 pt) Altered Elimination No (0 pt) Score/Fall Risk Level 0 - 2 = Low Risk Oriented to surroundings, Maintained a safe environment, Educated pt \T\ family on fall prevention, incl call for assistance when getting out of bed. Abuse screen: Denies threats or abuse. Denies injuries from another. Nutritional screening: No deficits noted. Tuberculosis screening: No symptoms or risk factors identified. Assessment: 10:30 General: Appears in no apparent distress. Behavior is calm, cooperative. Pain: Pain hb currently is 8 out of 10 on a pain scale. Neuro: Level of Consciousness is awake, alert, obeys commands, Oriented to person, place, time, situation. Cardiovascular: Patient's skin is warm and dry. Respiratory: Respiratory effort is even, unlabored, Respiratory pattern is regular, symmetrical. GI: No signs and/or symptoms were reported involving the gastrointestinal system. : No signs and/or symptoms were reported regarding the genitourinary system. EENT: No signs and/or symptoms were reported regarding the EENT system. Derm: Skin is pink, warm \T\ dry. Musculoskeletal: Reports right second finger pain. Vital Signs: 10:30 BP 133 / 80; Pulse 89; Resp 17; Temp 97; Pulse Ox 100% ; Weight 88.9 kg; Height 5 ft. 5 jl7 in. ; Pain 8/10; 10:30 Body Mass Index 32.62 (88.90 kg, 165.1 cm) jl7 10:30 Pain Scale: Adult jl7 ED Course: 10:11 Patient arrived in ED. mr 10:12 Trae Cárdenas MD is Attending Physician. ec2 10:29 Margarita Duke, PERRY is Primary Nurse. hb 10:29 Arm band placed on. hb 10:30 Patient has correct armband on for positive identification. Provided Education on: use hb of call light . 10:30 No provider procedures requiring assistance completed. Patient did not have IV access hb during this emergency room visit. 10:32 Triage completed. jl7 11:18 Hand Right 3 View XRAY In Process Unspecified. EDMS Administered Medications: No medications were administered Medication: 10:30 VIS not applicable for this client. hb Outcome: 11:32 Discharge ordered by . ec2 13:22 Discharged to home ambulatory, jl7 13:22 Condition: stable 13:22 Discharge instructions given to patient, Instructed on discharge instructions, follow up and referral plans. Demonstrated understanding of instructions, follow-up care, 13:22 Patient left the ED. jl7 Signatures: Dispatcher [employer] EDWV Jennifer Alonzo, Reg Reg mr Margarita Duke, RN RN hb Rogerio Bhatia RN RN jl7 Trae Cárdenas MD MD ec2
[2024-09-28 13:32] VITALS: BP 133/80; TEMP 97; O2SAT 100
== END 2024-09-28 13:22 | disposition home or self-care (01) ==
LOC: ER 10:08
DX: S60.021A Contusion of right index finger without damage to nail, initial encounter (principal); I10 Essential (primary) hypertension
CPT/HCPCS: 99282

== ENCOUNTER 2024-12-18 12:01 | Emergency (ER) | payer OTHER ==
--- NOTE | 2024-12-18 12:50 | ER ---
Nurse's Notes [facility] Name: Sadaf Duque Age: 29 yrs Sex: Female : 1995 Arrival Date: 12/18/2024 Time: 12:01 Bed 18 Private MD: Diagnosis: Local infection of the skin and subcutaneous tissue, unspecified-right nare Presentation: 12/18 12:19 Chief complaint: Nose ring stuck x 2 days. Coronavirus screen: At this time, the client hb does not indicate any symptoms associated with coronavirus-19. Ebola Screen: No symptoms or risks identified at this time. Initial Sepsis Screen: Does the patient meet any 2 criteria? No. Patient's initial sepsis screen is negative. Does the patient have a suspected source of infection? No. Patient's initial sepsis screen is negative. Risk Assessment: Do you want to hurt yourself or someone else? Patient reports no desire to harm self or others. Onset of symptoms was December 17, 2024. 12:19 Method Of Arrival: Ambulatory hb 12:19 Acuity: DEREK 4 hb Triage Assessment: 12:20 General: Appears in no apparent distress. Behavior is calm, cooperative, appropriate bp for age. Pain: Complains of pain in nose. EENT: Reports pain in nose. Neuro: No deficits noted. Cardiovascular: No deficits noted. Respiratory: No deficits noted. GI: No signs and/or symptoms were reported involving the gastrointestinal system. : No signs and/or symptoms were reported regarding the genitourinary system. Derm: No deficits noted. Musculoskeletal: No deficits noted. Historical: - Allergies: 12:22 No Known Allergies; hb - Home Meds: 12:22 None [Active]; hb - PMHx: 12:22 gestational diabetes; Hypertension; hb - PSHx: 12:22 None; hb - Immunization history:: Adult Immunizations up to date. - Infectious Disease History:: Denies. - Social history:: Smoking status: Patient denies any tobacco usage or history of. Screenin:02 [facility] ED Fall Risk Assessment (Adult) History of falling in the last 3 months, bp including since admission No falls in past 3 months (0 pts) Confusion or Disorientation No (0 pts) Intoxicated or Sedated No (0 pts) Impaired Gait No (0 pts) Mobility Assist Device Used No (0 pt) Altered Elimination No (0 pt) Score/Fall Risk Level 0 - 2 = Low Risk Oriented to surroundings. Abuse screen: Denies threats or abuse. Denies injuries from another. Nutritional screening: No deficits noted. Tuberculosis screening: No symptoms or risk factors identified. Assessment: 12:20 General: Appears in no apparent distress. Behavior is calm, cooperative, appropriate bp for age. Vital Signs: 12:19 BP 124 / 79; Pulse 86; Resp 16; Temp 98.1; Pulse Ox 100% on R/A; Weight 96.16 kg; hb Height 5 ft. 5 in. ; Pain 8/10; 12:19 Body Mass Index 35.28 (96.16 kg, 165.1 cm) hb 12:19 Pain Scale: Adult hb ED Course: 12:06 Patient arrived in ED. sj2 12:08 Jacinda [facility]C [facility]. kb 12:08 Timothy Crawford MD is Attending Physician. kb 12:11 Octavio Landers, RN is Primary Nurse. bp 12:22 Triage completed. hb 12:22 Arm band placed on. hb 12:51 Nasal Bones XRAY In Process Unspecified. EDMS 13:02 Patient has correct armband on for positive identification. bp 13:02 No provider procedures requiring assistance completed. Patient did not have IV access bp during this emergency room visit. Administered Medications: No medications were administered Outcome: 12:50 Discharge ordered by MD. kb 13:02 Discharged to home ambulatory, bp 13:02 Condition: stable 13:02 Discharge instructions given to patient, Instructed on discharge instructions, follow up and referral plans. medication usage, Demonstrated understanding of instructions, follow-up care, medications, Prescriptions given X 1, 13:03 Patient left the ED. bp Signatures: Dispatcher [employer] EDIA Jacinda Burns FNP-C FNP-Ckb Baxter, Heather, RN RN Octavio Landers, RN RN Giuseppe Schaffer sj2
--- NOTE | 2024-12-18 12:50 | EDPHYS ---
Physician Documentation [facility] Name: Sadaf Duque Age: 29 yrs Sex: Female : 1995 Arrival Date: 12/18/2024 Time: 12:01 Bed 18 Private MD: ED Physician Timothy Crawford HPI: 12/18 14:57 This 29 yrs old Black Female presents to ER via Ambulatory with complaints of Foreign kb Body In Nose. 14:57 Pt is a 29 year old female who presents for possible FB in right side of nose. States kb her jewelry fell out of her nose piercing one week ago and it started bothering her 3 days ago. States she tried to put a ring in it, but it wouldn't go through so she believes part of the old one is still in the skin. Reports redness and swelling to area last night that has improved, but it is spinning mule tender. Historical: - Allergies: 12:22 No Known Allergies; hb - Home Meds: 12:22 None [Active]; hb - PMHx: 12:22 gestational diabetes; Hypertension; hb - PSHx: 12:22 None; hb - Immunization history:: Adult Immunizations up to date. - Infectious Disease History:: Denies. - Social history:: Smoking status: Patient denies any tobacco usage or history of. ROS: 14:56 Constitutional: As per HPI kb Exam: 14:56 Constitutional: This is a well developed, well nourished patient who is awake, alert, kb and in no acute distress. Head/Face: Normocephalic, atraumatic. ENT: Moist Mucous membranes Cardiovascular: Regular rate Respiratory: Respirations even and unlabored. No increased work of breathing. Talking in full sentences Skin: Warm, dry with normal turgor. Normal color. MS/ Extremity: Pulses equal, no cyanosis. Neurovascular intact. Full, normal range of motion. Neuro: Awake and alert, GCS 15, oriented to person, place, time, and situation. 14:56 ENT: Nose: tenderness, mild erythema to right side of nose, Vital Signs: 12:19 BP 124 / 79; Pulse 86; Resp 16; Temp 98.1; Pulse Ox 100% on R/A; Weight 96.16 kg; hb Height 5 ft. 5 in. ; Pain 8/10; 12:19 Body Mass Index 35.28 (96.16 kg, 165.1 cm) 12:19 Pain Scale: Adult hb MDM: 12:08 Medical Screening Exam initiated kb 14:56 Differential diagnosis: foreign body - resolved, foreign body - unresolved, local kb infection. Data reviewed: vital signs, nurses notes. Counseling: I had a detailed discussion with the patient and/or guardian regarding the historical points, exam findings, and any diagnostic results supporting the discharge/admit diagnosis, radiology results, the need for outpatient follow up, a family practitioner, to return to the emergency department if symptoms worsen or persist or if there are any questions or concerns that arise at home. 12/18 12:28 Order name: Nasal Bones XRAY kb Administered Medications: No medications were administered Disposition: 16:12 Co-signature as Attending Physician, Timothy Crawford MD I reviewed the patient's care rt provided by the Advanced Practice Provider and agree with the diagnosis and treatment plan. Disposition Summary: 12/18/24 12:50 Discharge Ordered Notes: Location: Home kb Condition: Stable kb Diagnosis - Local infection of the skin and subcutaneous tissue, unspecified - right nare kb Followup: kb - With: Emergency Department - When: As needed - Reason: Worsening of condition Followup: kb - With: Private Physician - When: 2 - 3 days - Reason: Recheck today's complaints, Continuance of care, Re-evaluation by your physician Discharge Instructions: - Discharge Summary Sheet kb - Wound Infection, [id number] kb Forms: - Medication Reconciliation Form kb - Antibiotic Education kb - Prescription Opioid Use kb - Patient Portal Instructions kb - Leadership Thank You Letter kb Prescriptions: - Cephalexin 500 mg Oral Capsule - take 1 capsule ORAL route every 8 hours for 10 days; 30 capsule; Refills: 0, kb Product Selection Permitted Signatures: Dispatcher [employer] Jacinda Singh, NIRAJC PEPE-Margarita Boo RN RN Timothy Amador MD MD rt Corrections: (The following items were deleted from the chart) 12:50 12:50 Person with feared health complaint in whom no diagnosis is made kb kb
--- NOTE | 2024-12-18 13:05 | RAD REPORT ---
EXAM: XR FACIAL BONES HISTORY: r/o FB, piercing COMPARISON: None TECHNIQUE: Multiple views of the nasal bones.. FINDINGS: Nasal bones intact.. The visualized paranasal sinuses are well aerated. No radiopaque foreign body se en.
[2024-12-18 13:07] VITALS: BP 124/79; TEMP 98.1; O2SAT 100
== END 2024-12-18 13:03 | disposition home or self-care (01) ==
LOC: ER 12:01
DX: L08.9 Local infection of the skin and subcutaneous tissue, unspecified (principal)
CPT/HCPCS: 70160; 99283